=== PATIENT | male | born 1995 | race Caucasian/White ===

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

== ENCOUNTER 2018-05-16 14:34 | Emergency (ER) | payer SELFPAY ==
--- NOTE | 2018-05-16 14:53 | ED ---
Neurological HPI - HPI Summary HPI Summary: A 22 y/o M presents to ED s/p unwitnessed seizure onset this morning that spontaneously resolved [employer]. He had just woke up and was getting ready for class at onset. He says he was a bit confused afterwards. He has a service dog that was licking his face and sitting with him when he woke up. He says he felt it coming on. Associated: generalized fatigue, nausea. At bedside, he states feeling that something is wrong and that his body is just not at baseline. The seizures have been happening more frequently in the past three years, he has never been evaluated for them previously. PMHx: syncopal episodes, anxiety and acute bipolar. Rojo Because it was my it doesn't work as well as - History of Current Complaint Chief Complaint: EDSeizure Stated Complaint: SEIZURE PER PT Time Seen by Provider: 05/16/18 14:51 Hx Obtained From: Patient Onset/Duration: Sudden Onset, Resolved Current Severity: Mild Number of Seizures: 1 Pain Intensity: 2 Pain Scale Used: 0-10 Numeric - Allergy/Home Medications Allergies/Adverse Reactions: Allergies Allergy/AdvReac Type Severity Reaction Status Date / Time No Known Allergies Allergy Verified 05/16/18 15:02 PMH/Surg Hx/FS Hx/Imm Hx Previously Healthy: No Neurological History: Reports: Hx Seizures, Other Neuro Impairments/Disorders - epilepsy; syncopal episodes Psychiatric History: Reports: Hx Anxiety, Hx Bipolar Disorder Infectious Disease History: No Infectious Disease History: Denies: Traveled Outside the [place] in Last 30 Days - Family History Known Family History: Positive: Other - grandmother / great aunt - [place] Family History: mother - anxiety - Social History Occupation: Student Lives: Alone Alcohol Use: None Hx Substance Use: Yes Substance Use Type: Reports: Marijuana Substance Use Comment - Amount & Last Used: pt smoked some pot tonight Hx Tobacco Use: No Smoking Status (MU): Never Smoked Tobacco Review of Systems Positive: Fatigue Positive: Nausea Neurological: Other - pos: sz All Other Systems Reviewed And Are Negative: Yes Physical Exam - Summary Physical Exam Summary: Appearance: The patient is well-nourished in no acute distress and in no acute pain. Skin: The skin is warm and dry and skin color reflects adequate perfusion. HEENT: The head is normocephalic and atraumatic. The pupils are equal and reactive. The conjunctivae are clear and without drainage. Nares are patent and without drainage. Mouth reveals moist mucous membranes and the throat is without erythema and exudate. The external ears are intact. The ear canals are patent and without drainage. The tympanic membranes are intact. Neck: the neck is supple with full range of motion and non-tender. There are no carotid bruits. There is no neck vein distension. Respiratory: Chest is non-tender. Lungs are clear to auscultation and breath sounds are symmetrical and equal. Cardiovascular: Heart is regular rate and rhythm. There is no murmur or rub auscultated. There is no peripheral edema and pulses are symmetrical and equal. Abdomen: The abdomen is soft and non-tender. There are normal bowel sounds heard in all four quadrants and there is no organomegaly palpated. Musculoskeletal: There is no back tenderness noted. Extremities are non-tender with full range of motion. There is good capillary refill. There is no peripheral edema or calf tenderness elicited. Neurological: Patient is alert and oriented to person, place and time. The patient has symmetrical motor strength in all four extremities. Cranial nerves are grossly intact. Deep tendon reflexes are symmetrical and equal in all four extremities. Psychiatric: The patient has an appropriate affect and does not exhibit any anxiety or depression. Triage Information Reviewed: Yes Vital Signs On Initial Exam: Initial Vitals Temp Pulse Resp BP Pulse Ox 97.8 F 79 20 144/107 96 05/16/18 14:45 05/16/18 14:45 05/16/18 14:45 05/16/18 14:45 05/16/18 14:45 Vital Signs Reviewed: Yes Diagnostics - Vital Signs Vital Signs Temp Pulse Resp BP Pulse Ox 05/16/18 14:45 97.8 F 79 20 144/107 96 - Laboratory Result Diagrams: 05/16/18 15:33 05/16/18 15:33 Lab Statement: Any lab studies that have been ordered have been reviewed, and results considered in the medical decision making process. - EKG 1520 Cardiac Rate: NL - 69 bpm EKG Rhythm: Sinus Rhythm Summary of EKG Findings: early repol Re-Evaluation - Re-Evaluation 1 Re-Evaluation Time: 17:02 Change: Improved Comment: Discussing results and plan for DC. Pt voiced understanding. Course/Dx - Course Course Of Treatment: It is unclear what has been happening to Mr. Muhammad. He may have been having syncopal episodes or possibly seizures. He was nontoxic here with stable vital signs and laboratory workup was unremarkable. I recommended he follow up with PCP for further workup as he is in no danger at this point. Because of the possibility of seizure I recommended that he not drive or operate heavy machinery. - Diagnoses Provider Diagnoses: Syncope, Seizure Discharge - Sign-Out/Discharge Documenting (check all that apply): Patient Departure - DC Patient Received Moderate/Deep Sedation with Procedure: No - Discharge Plan Condition: Stable Disposition: HOME Patient Education Materials: Syncope (ED), New-Onset Seizure in Adults (ED) Forms: *School Release Referrals: Kirstie Villafuerte MD [Primary Care Provider] - Care [facility] [Outside] - 3 Days Additional Instructions: Please return to the ED if you experience new or worsening symptoms. Follow up with your primary care provider in 2-3 days. - Billing Disposition and Condition Condition: STABLE Disposition: Home - Attestation Statements Document Initiated by Mikiibe: Yes Documenting Scribe: Rita Lott Provider For Whom Scribe is Documenting (Include Credential): Dr. Yobani Flowers MD Scribe Attestation: I, Rita Lott scribed for Dr. Yobani Flowers MD on 05/16/18 at 2044. Scribe Documentation Reviewed: Yes Provider Attestation: The documentation as recorded by the Rita ceballos accurately reflects the service I personally performed and the decisions made by me, Dr. Yobani Flowers MD Status of Scribe Document: Viewed
[2018-05-16 15:40] LABS: ABS Basophils 0 10^3/ul (0-0.2); ABS Eosinophils 0.1 10^3/ul (0-0.6); ABS Monocytes 0.3 10^3/ul (0-0.8); ABS Neutrophils 3.1 10^3/ul (1.5-7.7); ABS Nucleated RBC 0 10^3/ul; Eosinophil % 2.2 %; Hematocrit 42 % (36-46); Hemoglobin 13.7 g/dL (14.0-18.0); Lymphocyte % 22.4 %; Mean Corpuscular HGB Conc 33 g/dL (31-36); Mean Corpuscular Hemoglobin 29 pg (27-31); Mean Corpuscular Volume 88 fL (80-94); Mean Platelet Volume 8.4 fL (7.4-10.4); Nucleated Red Blood Cells % 0.1; Platelet Count 221 10^3/uL (150-450); Red Blood Count 4.78 10^6 /uL (4.18-5.48); Red Cell Distribution Width 14 % (10.5-15); White Blood Count 4.5 10^3/uL (3.5-10.8)
[2018-05-16 16:00] LABS: Albumin 4.7 g/dL (3.2-5.2); Albumin/Globulin Ratio 2.1 (1-3); BUN/Creatinine Ratio 14.9 (8-20); Calcium 9.8 mg/dL (8.6-10.3); EGFR African American 135.4 (>60); EGFR Non-African American 111.9 (>60); Globulin 2.2 g/dL (2-4); Potassium 4.4 mmol/L (3.5-5.0); Total Bilirubin 0.5 mg/dL (0.2-1.0); Total Protein 6.9 g/dL (6.4-8.9)
[2018-05-16 16:38] LABS: TSH (Thyroid Stimulating Horm) 0.48 mcIU/mL (0.34-5.60)
[2018-05-16 17:20] VITALS: BP 145/70
[2018-05-16 17:30] LABS: Urine Appearance Clear; Urine Bilirubin Negative (Negative); Urine Blood Negative (Negative); Urine Color Yellow; Urine Glucose Negative (Negative); Urine Ketones Negative (Negative); Urine Nitrite Negative (Negative); Urine Protein Negative (Negative); Urine Specific Gravity 1.025 (1.010-1.030); Urine Urobilinogen Negative (Negative)
== END 2018-05-16 17:19 | disposition home or self-care (01) ==
LOC: ED 14:34
DX: R55 Syncope and collapse (principal); G40.909 Epilepsy, unspecified, not intractable, without status epilepticus; R94.31 Abnormal electrocardiogram [ECG] [EKG]; F41.9 Anxiety disorder, unspecified; F31.9 Bipolar disorder, unspecified
CPT/HCPCS: 36415; 80053; 81003; 83605; 83735; 84443; 84484; 85025; 93005; 99282